=== PATIENT | male | born 1995 | race Caucasian/White ===

== ENCOUNTER 2017-11-15 01:18 | Emergency (ER) | payer OTHER ==
[2017-11-15] MEDS ORDERED: ONDANSETRON 4 MG/2 ML VIAL ONE (01:41)
[2017-11-15] MEDS ORDERED: ONDANSETRON 4 MG/2 ML VIAL IVP ONE (01:43)
[2017-11-15] MEDS ORDERED: NS 1,000 ML IV ONE ×2 (01:43→03:22)
[2017-11-15 03:10] LABS: PLATELET COUNT 254 10^3/uL (150-400)
[2017-11-15] MEDS ORDERED: LORazepam 2 MG/ML INJ IVP ONE (03:22)
[2017-11-15] MEDS ORDERED: PROMETHAZINE HCL 25 MG/ML INJ IVP ONE (03:22)
--- NOTE | 2017-11-15 03:26 | EDPHY ---
H & P Stated Complaint: N/V, sweats since 1999 Time Seen by Provider: 11/15/17 03:01 HPI/ROS: HPI The patient presents with nausea, vomiting, epigastric abdominal pain that began at about 8:00 p.m. Fairly suddenly. His symptoms have been constant and moderate in severity. The pain is burning in nature. He has had a handful of similar episodes in association with marijuana use. He has been able to cut down on his marijuana smoking, however for the last 1 week he has been smoking daily. He suspects this is contributing to his symptoms. He tried a dose of Zofran that he has a prescription for without any improvement in his symptoms so he came into the emergency department.. REVIEW OF SYSTEMS Constitutional: No fever, no chills. Eyes: No discharge. ENT: No sore throat. Cardiovascular: No chest pain, no palpitations. Respiratory: No cough, no shortness of breath. Gastrointestinal: See HPI Genitourinary: No hematuria. Musculoskeletal: No back pain. Skin: No rashes. Neurological: No headache. PMHx: Nausea and vomiting associated with marijuana use Soc Hx: Marijuana use PHYSICAL General Appearance: Alert, actively vomiting Eyes: Pupils equal and round no pallor or injection ENT, Mouth: Mucous membranes dry Respiratory: There are no retractions, lungs are clear to auscultation Cardiovascular: Regular rate and rhythm Gastrointestinal: Abdomen is soft with epigastric tenderness Neurological: A&O, moves all extremities Skin: Warm and dry, no rashes Musculoskeletal: Neck is supple non tender Extremities: symmetrical, full range of motion Psychiatric: Patient is oriented X 3, there is no agitation Source: Patient Exam Limitations: No limitations - Medical/Surgical History Hx Asthma: No Hx Chronic Respiratory Disease: No Hx Diabetes: No Hx Cardiac Disease: No Hx Renal Disease: No Hx Cirrhosis: No Hx Alcoholism: No Hx HIV/AIDS: No Hx Splenectomy or Spleen Trauma: No Other PMH: medical none. surgery none - Social History Smoking Status: Current every day smoker Constitutional: Initial Vital Signs Temperature (C) 36.5 C 11/15/17 01:20 Heart Rate 84 11/15/17 01:20 Respiratory Rate 18 11/15/17 01:20 Blood Pressure 127/94 H 11/15/17 01:20 O2 Sat (%) 96 11/15/17 01:20 O2 Delivery Mode Room Air Allergies/Adverse Reactions: No Known Allergies Allergy (Verified 11/15/17 01:23) Home Medications: Medication Instructions Recorded Ondansetron Odt [Zofran Odt] 4 mg PO Q4PRN PRN #20 tab 09/23/13 Medical Decision Making Differential Diagnosis: 22-year-old man with recurrent episode of nausea, vomiting, epigastric abdominal pain for the last several hours in the setting of marijuana use. On exam, he appears clinically dehydrated, he has mild epigastric tenderness, he is actively vomiting. Differential diagnosis includes cannabinoid hyperemesis syndrome, cyclic vomiting syndrome, abdominal migraine, gastritis. In the emergency department, we have administered IV fluids and antiemetics. Labs were checked and did reveal leukocytosis, I feel this is likely due to vomiting and stress response verses serious bacterial infection. - Data Points Laboratory Results: Laboratory Results 11/15/17 01:40 11/15/17 01:40 11/15/17 11/15/17 01:40 01:40 WBC 19.53 10^3/uL H 10^3/uL (3.80-9.50) RBC 5.30 10^6/uL 10^6/uL (4.40-6.38) Hgb 17.2 g/dL g/dL (13.7-17.5) Hct 47.8 % % (40.0-51.0) MCV 90.2 fL fL (81.5-99.8) MCH 32.5 pg pg (27.9-34.1) MCHC 36.0 g/dL g/dL (32.4-36.7) RDW 11.4 % L % (11.5-15.2) Plt Count 254 10^3/uL 10^3/uL (150-400) MPV 11.0 fL fL (8.7-11.7) Neut % (Auto) 86.6 % H % (39.3-74.2) Lymph % (Auto) 5.3 % L % (15.0-45.0) [place] % (Auto) 7.1 % % (4.5-13.0) Eos % (Auto) 0.2 % L % (0.6-7.6) Baso % (Auto) 0.3 % % (0.3-1.7) Nucleat RBC Rel Count 0.0 % % (0.0-0.2) Absolute Neuts (auto) 16.92 10^3/uL H 10^3/uL (1.70-6.50) Absolute Lymphs (auto) 1.03 10^3/uL 10^3/uL (1.00-3.00) Absolute Monos (auto) 1.39 10^3/uL H 10^3/uL (0.30-0.80) Absolute Eos (auto) 0.03 10^3/uL 10^3/uL (0.03-0.40) Absolute Basos (auto) 0.06 10^3/uL 10^3/uL (0.02-0.10) Absolute Nucleated RBC 0.00 10^3/uL 10^3/uL (0-0.01) Immature Gran % 0.5 % % (0.0-1.1) Immature Gran # 0.10 10^3/uL 10^3/uL (0.00-0.10) Sodium 143 mEq/L mEq/L (135-145) Potassium 3.9 mEq/L mEq/L (3.3-5.0) Chloride 107 mEq/L mEq/L (97-110) Carbon Dioxide 19 mEq/l L mEq/l (22-31) Anion Gap 17 mEq/L H mEq/L (8-16) BUN 16 mg/dL mg/dL (7-23) Creatinine 0.9 mg/dL mg/dL (0.7-1.3) Estimated GFR > 60 Glucose 143 mg/dL H mg/dL (70-100) Calcium 10.5 mg/dL H mg/dL (8.5-10.4) Total Bilirubin 1.4 mg/dL mg/dL (0.1-1.4) AST 21 IU/L IU/L (17-59) ALT 27 IU/L IU/L (21-72) Alkaline Phosphatase 85 IU/L IU/L (38-126) Total Protein 7.9 g/dL g/dL (6.3-8.2) Albumin 5.0 g/dL g/dL (3.5-5.0) Lipase 22 IU/L L IU/L (23-300) Medications Given: Discontinued Medications Sodium Chloride (Ns) 1,000 mls @ 0 mls/hr IV EDNOW ONE; Wide Open PRN Reason: Protocol Stop: 11/15/17 01:44 Last Admin: 11/15/17 01:43 Dose: 1,000 mls Sodium Chloride (Ns) 1,000 mls @ 0 mls/hr IV EDNOW ONE; Wide Open PRN Reason: Protocol Stop: 11/15/17 03:23 Last Admin: 11/15/17 03:28 Dose: 1,000 mls Lorazepam (Ativan Injection) 1 mg IVP EDNOW ONE Stop: 11/15/17 03:23 Last Admin: 11/15/17 03:29 Dose: 1 mg Ondansetron HCl (Zofran) 4 mg IVP EDNOW ONE Stop: 11/15/17 01:44 Last Admin: 11/15/17 01:43 Dose: 4 mg Promethazine HCl (Phenergan) 12.5 mg IVP ONCE ONE Stop: 11/15/17 03:23 Last Admin: 11/15/17 03:29 Dose: 12.5 mg Departure - Departure Disposition: Home, Routine, Self-Care Clinical Impression: Nausea & vomiting, Abdominal pain, Leukocytosis Condition: Good Instructions: Acute Nausea and Vomiting (ED) Additional Instructions: I recommend that you stop using marijuana because is probably causing your symptoms. Referrals: [facility] [Clinic] - As per Instructions
[2017-11-15] MEDS ORDERED: PROMETHAZINE 25 MG PREPACK #4 BTL TAKEHOME ONE (05:59)
[2017-11-15] MEDS ORDERED: PROMETHAZINE 25MG SUPP PREPK#4 BTL TAKEHOME ONE (06:09)
[2017-11-15 06:23] VITALS: BP 120/80
== END 2017-11-15 06:22 | disposition home or self-care (01) ==
DX: R11.2 Nausea with vomiting, unspecified (principal); R10.13 Epigastric pain; D72.829 Elevated white blood cell count, unspecified; E86.9 Volume depletion, unspecified; F17.200 Nicotine dependence, unspecified, uncomplicated
CPT/HCPCS: 96374; J2060; J2405; J2550

== ENCOUNTER 2017-11-17 13:14 | Emergency (ER) | payer OTHER ==
--- NOTE | 2017-11-17 13:44 | EDPHY ---
General - History Smoking Status: Current every day smoker Time Seen by Provider: 11/17/17 13:34 Narrative: CHIEF COMPLAINT: Nausea vomiting HISTORY OF PRESENT ILLNESS: Patient presents with complaints of nausea vomiting x3 days. He was recently seen here for this 2 nights ago with diagnosis of cannabinoid hyperemesis. He was doing well when he was discharged home, but the nausea and vomiting returned yesterday. He has had increasing vomiting with some retching. No bloody emesis. No bilious emesis. No chest pain or shortness of breath. No headache, neck pain or fever. He has no diarrhea. No blood in stool. He does have some epigastric abdominal discomfort with this. No trauma or injury. No other associated complaints or modifying factors. REVIEW OF SYSTEMS: 10 systems were reviewed and negative with the exception of the elements mentioned in the history of present illness. PCP: [facility] SPECIALISTS: None PAST MEDICAL HISTORY: Cannabinoid hyperemesis PAST SURGICAL HISTORY: No surgical history SOCIAL HISTORY: Occasional marijuana use. Previous heavy marijuana user. FAMILY HISTORY: Noncontributory EXAMINATION General Appearance: Alert, no distress Head: normocephalic, atraumatic Eyes: Pupils equal and round, no conjunctival pallor or injection ENT, Mouth: Mucous membranes slightly dry. Airway patent. Neck: Normal inspection, supple, non-tender Respiratory: Lungs are clear to auscultation Cardiovascular: Regular rate and rhythm. No murmur Gastrointestinal: Abdomen is soft and nondistended. There is epigastric tenderness that is mild. No rebound tenderness. No guarding. No tympany rigidity. Bowel sounds present all 4 quadrants. Back: non-tender, no bony abnormalities Neurological: A&O, nonfocal, normal gait Skin: Warm and dry, no rash Extremities: Nontender, no pedal edema Psychiatric: Mood and affect normal DIFFERENTIAL DIAGNOSES: Including but not limited to cannabinoid hyperemesis, gastritis, colitis, esophagitis, dehydration, cholecystitis, cholelithiasis, pancreatitis MDM: 1:40 p.m. Acute nausea vomiting in a patient with diagnosis of cannabinoid hyperemesis syndrome. He feels this is exacerbation. Pain is minimal. He has had too numerous to count episodes of emesis that are non bilious. Vital signs within normal limits. He is actively vomiting, thus I have ordered Haldol and Ativan. IV has been placed. We will also administer IV fluid. 2:20 p.m. Patient re-evaluated. He is starting to feel much better. He has received 1 L IV fluid. I have ordered a 2nd L and will re-evaluate after this. 2:45 p.m. Patient re-evaluated. He is asking to try some water and feeling significantly better. I do feel that he is stable for discharge home. I feel he will benefit from addition of Ativan to his promethazine. I will also recommend over -the-counter Pepcid twice daily for 10-14 days. We discussed continual refrain from marijuana use. We discuss GI referral primary care follow-up. We discussed ED precautions his abdominal exam remains benign at this time. He is comfortable with discharge home. 3:20 p.m. Patient was initially tolerating p.o. Intake but has not vomited again feeling symptomatic. I have ordered further medication and fluid. Will re-evaluate again 4:30 p.m. Patient re-evaluated. He is feeling better. He has tolerated liquids by mouth without vomiting. We discussed discharge home with the above plan head he would like to go home. Discharged home stable condition. SUPERVISION: This patient was independently evaluated without direct involvement of or examination by the attending physician. (Harvey Bobo) Medical Decision Making: I did not see this patient while he was in the emergency department. However his care was discussed with the PA while the patient was in the department. I agree with treatment plan and management (Richard Sawant) - Objective Vital Signs: Initial Vital Signs Temperature (C) 36.4 C 11/17/17 13:28 Heart Rate 72 11/17/17 13:28 Respiratory Rate 18 11/17/17 13:28 Blood Pressure 138/81 H 11/17/17 13:28 O2 Sat (%) 99 11/17/17 13:28 O2 Delivery Mode Room Air O2 (L/minute) 2 Allergies/Adverse Reactions: No Known Allergies Allergy (Verified 11/17/17 13:31) Home Medications: Medication Instructions Recorded Famotidine [Pepcid] 20 mg PO BID #28 tablet 11/17/17 LORazepam [Ativan] 1 mg PO Q8 PRN #6 tablet 11/17/17 Phenergan 11/17/17 Sucralfate [Carafate Oral Liquid 10 ml PO QID PRN #240 ml 11/17/17 100 mg/ml] Laboratory Results: Laboratory Results 11/17/17 13:42 11/17/17 13:42 11/17/17 11/17/17 13:42 13:42 WBC 12.55 10^3/uL H 10^3/uL (3.80-9.50) RBC 5.41 10^6/uL 10^6/uL (4.40-6.38) Hgb 17.7 g/dL H g/dL (13.7-17.5) Hct 49.8 % % (40.0-51.0) MCV 92.1 fL fL (81.5-99.8) MCH 32.7 pg pg (27.9-34.1) MCHC 35.5 g/dL g/dL (32.4-36.7) RDW 11.6 % % (11.5-15.2) Plt Count 277 10^3/uL 10^3/uL (150-400) MPV 10.0 fL fL (8.7-11.7) Neut % (Auto) 82.3 % H % (39.3-74.2) Lymph % (Auto) 9.0 % L % (15.0-45.0) [place] % (Auto) 7.6 % % (4.5-13.0) Eos % (Auto) 0.4 % L % (0.6-7.6) Baso % (Auto) 0.4 % % (0.3-1.7) Nucleat RBC Rel Count 0.0 % % (0.0-0.2) Absolute Neuts (auto) 10.32 10^3/uL H 10^3/uL (1.70-6.50) Absolute Lymphs (auto) 1.13 10^3/uL 10^3/uL (1.00-3.00) Absolute Monos (auto) 0.96 10^3/uL H 10^3/uL (0.30-0.80) Absolute Eos (auto) 0.05 10^3/uL 10^3/uL (0.03-0.40) Absolute Basos (auto) 0.05 10^3/uL 10^3/uL (0.02-0.10) Absolute Nucleated RBC 0.00 10^3/uL 10^3/uL (0-0.01) Immature Gran % 0.3 % % (0.0-1.1) Immature Gran # 0.04 10^3/uL 10^3/uL (0.00-0.10) Sodium 141 mEq/L mEq/L (135-145) Potassium 3.7 mEq/L mEq/L (3.3-5.0) Chloride 105 mEq/L mEq/L (97-110) Carbon Dioxide 20 mEq/l L mEq/l (22-31) Anion Gap 16 mEq/L mEq/L (8-16) BUN 11 mg/dL mg/dL (7-23) Creatinine 0.9 mg/dL mg/dL (0.7-1.3) Estimated GFR > 60 Glucose 127 mg/dL H mg/dL (70-100) Calcium 10.3 mg/dL mg/dL (8.5-10.4) Total Bilirubin 1.0 mg/dL mg/dL (0.1-1.4) Conjugated Bilirubin 0.2 mg/dL mg/dL (0.0-0.5) Unconjugated Bilirubin 0.8 mg/dL mg/dL (0.0-1.1) AST 21 IU/L IU/L (17-59) ALT 27 IU/L IU/L (21-72) Alkaline Phosphatase 80 IU/L IU/L (38-126) Total Protein 8.2 g/dL g/dL (6.3-8.2) Albumin 5.0 g/dL g/dL (3.5-5.0) Lipase 27 IU/L IU/L (23-300) Medications Given: Discontinued Medications Haloperidol Lactate (Haldol Injection) 2.5 mg IVP EDNOW ONE Stop: 11/17/17 13:46 Last Admin: 11/17/17 13:54 Dose: 2.5 mg Haloperidol Lactate (Haldol Injection) 2.5 mg IVP EDNOW ONE Stop: 11/17/17 15:27 Last Admin: 11/17/17 15:29 Dose: 2.5 mg Sodium Chloride (Ns) 1,000 mls @ 0 mls/hr IV EDNOW ONE; Wide Open PRN Reason: Protocol Stop: 11/17/17 13:46 Last Admin: 11/17/17 13:57 Dose: 1,000 mls Sodium Chloride (Ns) 1,000 mls @ 0 mls/hr IV EDNOW ONE; Wide Open PRN Reason: Protocol Stop: 11/17/17 14:22 Last Admin: 11/17/17 14:30 Dose: 1,000 mls Sodium Chloride (Ns) 1,000 mls @ 0 mls/hr IV EDNOW ONE; Wide Open PRN Reason: Protocol Stop: 11/17/17 15:27 Last Admin: 11/17/17 15:30 Dose: 1,000 mls Lorazepam (Ativan Injection) 1 mg IVP EDNOW ONE Stop: 11/17/17 13:46 Last Admin: 11/17/17 13:55 Dose: 1 mg Pantoprazole Sodium (Protonix) 40 mg IVP EDNOW ONE Stop: 11/17/17 13:51 Last Admin: 11/17/17 13:59 Dose: 40 mg Sucralfate (Carafate) 1 gm PO EDNOW ONE Stop: 11/17/17 16:05 Last Admin: 11/17/17 16:22 Dose: 1 gm Departure - Departure Disposition: Home, Routine, Self-Care Clinical Impression: Cannabinoid hyperemesis syndrome Acute gastritis Qualifiers: Gastritis type: unspecified gastritis Gastritis bleeding: without bleeding Qualified Code(s): K29.00 - Acute gastritis without bleeding Condition: Good Instructions: Gastritis (ED), Cyclic Vomiting Syndrome (ED) Additional Instructions: 1. Medications as prescribed 2. Increase fluid intake next 48 hr 3. Clear liquid diet. Advance slowly as tolerated 4. Contact the outpatient primary care physician as provided to establish care 5. Contact the on-call GI physician as provided for establishing further care 6. ED precautions as discussed Referrals: Barrington Wiggins MD [Medical Doctor] - As per Instructions Alannah Marie MD [[facility] [place]] - As per Instructions Stand Alone Forms: Work Excuse Prescriptions: Famotidine [Pepcid] 20 mg PO BID #28 tablet LORazepam [Ativan] 1 mg PO Q8 PRN #6 tablet PRN Reason: Anxiety Sucralfate [Carafate Oral Liquid 100 mg/ml] 10 ml PO QID PRN #240 ml PRN Reason: abdominal pain
[2017-11-17] MEDS ORDERED: LORazepam 2 MG/ML INJ IVP ONE (13:45)
[2017-11-17] MEDS ORDERED: NS 1,000 ML IV ONE ×3 (13:45→15:26)
[2017-11-17] MEDS ORDERED: HALOPERIDOL LACT 5 MG/ML INJ IVP ONE ×2 (13:45→15:26)
[2017-11-17] MEDS ORDERED: PANTOPRAZOLE SODIUM 40 MG VIAL IVP ONE (13:50)
[2017-11-17 13:53] LABS: PLATELET COUNT 277 10^3/uL (150-400)
[2017-11-17 15:31] VITALS: BP 141/87
[2017-11-17] MEDS ORDERED: SUCRALFATE 1 GM TAB PO ONE (16:04)
== END 2017-11-17 17:04 | disposition home or self-care (01) ==
DX: F12.188 Cannabis abuse with other cannabis-induced disorder (principal); R11.2 Nausea with vomiting, unspecified
CPT/HCPCS: 96374; J1630; J2060

== ENCOUNTER 2017-11-18 20:35 | Emergency (ER) | payer OTHER ==
[2017-11-18] MEDS ORDERED: NS 1,000 ML IV ONE (20:46)
--- NOTE | 2017-11-18 20:53 | EDPHY ---
H & P Stated Complaint: poss allergic reaction to antivan - Personal History Current Tetanus Diphtheria and Acellular Pertussis (TDAP): Unsure - Medical/Surgical History Hx Asthma: No Hx Chronic Respiratory Disease: No Hx Diabetes: No Hx Cardiac Disease: No Hx Renal Disease: No Hx Cirrhosis: No Hx Alcoholism: No Hx HIV/AIDS: No Hx Splenectomy or Spleen Trauma: No Other PMH: cannabanoid hyperemesis - Social History Smoking Status: Current every day smoker Time Seen by Provider: 11/18/17 20:46 HPI/ROS: CHIEF COMPLAINT: Neck spasms HISTORY OF PRESENT ILLNESS: 22-year-old male in the ER with mother via private vehicle complaining of neck spasms since this morning. He has seen the ER yesterday and given medications including Haldol for suspected cannabinoid hyperemesis. No peripheral paresthesia, weakness, numbness. No headache. No nausea or vomiting. No abdominal pain. No history of major minor head injury or manipulation. PRIMARY CARE PROVIDER: REVIEW OF SYSTEMS: 10 systems reviewed and negative with the exception of the elements mentioned in the history of present illness PAST MEDICAL & SURGICAL HISTORY: Recent emergency department visit for possible cannabis hyperemesis SOCIAL HISTORY: Positive for marijuana use PHYSICAL EXAM (Prior to examination, patient consented to physical exam, hands were washed and my usual and customary physical exam procedures followed) 1) GENERAL: Well-developed, well-nourished, alert and oriented. Appears uncomfortable. 2) HEAD: Normocephalic, atraumatic 3) HEENT: Pupils equal, round, reactive to light bilaterally. Sclera anicteric. Nasopharynx, oropharynx, clear, no lesions. MoistDry mucous membranes. Ears bilaterally with normal tympanic membranes. 4) NECK: Full range of motion, no meningeal signs. 5) LUNGS: Clear auscultation bilaterally, no wheezes, no rhonchi, no retractions. 6) HEART: Regular rate and rhythm, no murmur, no heave, no gallop. 7) ABDOMEN: No guarding, no rebound, no focal tenderness, negative McBurney's, negative Diallo's, negative Rovsing's, negative peritoneal sign, 8) MUSCULOSKELETAL: Moving all extremities, no focal areas of tenderness, no obvious trauma. No peripheral edema or discoloration. 9) BACK: No CVA tenderness, no midline vertebral tenderness, no fluctuance, no step-off, no obvious trauma, no visual or palpable abnormality. 10) SKIN: No rash, no petechiae. 11) Psychiatric: Patient is oriented X 3, there is no agitation. DIFFERENTIAL DIAGNOSIS: In no particular order include but limited to dystonic reaction, spasmodic torticollis, cervical strain (Buster Lee) Constitutional: Initial Vital Signs Temperature (C) 37.5 C 11/18/17 20:40 Heart Rate 118 H 11/18/17 20:40 Respiratory Rate 28 H 11/18/17 20:40 Blood Pressure 148/91 H 11/18/17 20:40 O2 Sat (%) 97 11/18/17 20:40 O2 Delivery Mode Room Air Allergies/Adverse Reactions: No Known Allergies Allergy (Verified 11/17/17 13:31) Home Medications: Medication Instructions Recorded Famotidine [Pepcid] 20 mg PO BID #28 tablet 11/17/17 LORazepam [Ativan] 1 mg PO Q8 PRN #6 tablet 11/17/17 Phenergan 11/17/17 Sucralfate [Carafate Oral Liquid 10 ml PO QID PRN #240 ml 11/17/17 100 mg/ml] Medical Decision Making ED Course/Re-evaluation: 8:51 p.m.: Evaluated the patient's emergency department visit from yesterday for vomiting, given Haldol at that time. Given his current presenting symptoms , suspect more than likely dystonic reaction secondary to recent Haldol administration. Will administer Benadryl, IV fluids and re-evaluate. 8:59 p.m.: Re-evaluation after IV Benadryl. Asymptomatic. Smiling. 10:10 p.m.: Re-evaluation, sleeping, asymptomatic. He is requesting discharge home. Plan will be discharge home. (Buster Lee) - Data Points Medications Given: Discontinued Medications Diphenhydramine HCl (Benadryl Injection) 25 mg IVP EDNOW ONE Stop: 11/18/17 20:47 Last Admin: 11/18/17 20:55 Dose: 25 mg Sodium Chloride (Ns) 1,000 mls @ 0 mls/hr IV ONCE ONE PRN Reason: Wide Open Stop: 11/18/17 20:47 Last Admin: 11/18/17 20:55 Dose: 1,000 mls Departure - Departure Disposition: Home, Routine, Self-Care Clinical Impression: Dystonic drug reaction Condition: Good Instructions: Spasmodic Torticollis (ED), Extrapyramidal Symptoms (ED) Additional Instructions: Avoid Haldol in the future. If similar symptoms reoccur seek immediate medical attention Referrals: Lance Fonseca DO [Medical Doctor] - As per Instructions
[2017-11-18 22:21] VITALS: BP 118/70
== END 2017-11-18 22:21 | disposition home or self-care (01) ==
DX: M43.6 Torticollis (principal); T43.1X5A Adverse effect of monoamine-oxidase-inhibitor antidepressants, initial encounter; G24.1 Genetic torsion dystonia
CPT/HCPCS: 96374; J1200